=== PATIENT | female | born 1985 | race Caucasian/White ===

== ENCOUNTER → 2017-06-07 | Outpatient (CLI) | payer OTHER ==
[~2017-06-07] MED LIST: ALB18R INH; ALB6.7R INH; AZIT-18 PO; CETI-221 PO; HYDR-2963 PO; KET10 PO; LOR5/325 PO; PANT40TA63 PO; PHEN-580 PO; PRED-1 PO
== END ==
LOC: LAB 12:30
PROVIDERS: ATTEND Family Medicine
DX: M79.1 Myalgia (principal); M25.50 Pain in unspecified joint
CPT/HCPCS: 87502

== ENCOUNTER → 2017-06-12 | Outpatient (REF) ==
[2017-06-12 09:36] LABS: LDL CHOLESTEROL 81 mg/dl
== END ==
DX: Z02.9 Encounter for administrative examinations, unspecified (principal)

== ENCOUNTER → 2017-06-12 | Outpatient (CLI) | payer OTHER | LOC: LAB 07:10 | PROVIDERS: ATTEND Family Medicine | DX: E78.5 Hyperlipidemia, unspecified (principal); E11.65 Type 2 diabetes mellitus with hyperglycemia | CPT/HCPCS: 83036 ==

== ENCOUNTER → 2017-06-16 | Outpatient (CLI) | payer OTHER | LOC: LAB 09:30 | PROVIDERS: ATTEND Family Medicine | DX: R71.8 Other abnormality of red blood cells (principal) | CPT/HCPCS: 36415; 81256; 82728; 83540 ==

== ENCOUNTER 2017-08-14 00:50 | Day surgery (SDC) | payer OTHER ==
[2017-08-14] VITALS (8 sets, daily range): BP systolic 124–145; BP diastolic 75–98
[~2017-08-14] VITALS: Ht 170.2 cm; Wt 112.5 kg
[~2017-08-14 00:50] MED LIST changes: +HYDR-2966 PO; +LACT460C3 PO; +LISD60CA2 PO; +METF-410 PO; +MONT10TA PO; +PSEU120T9 PO
[2017-08-14] MEDS ORDERED: LIDOCAINE/SOD BICARB 8.4% SYR ID ONE (08:00)
[2017-08-14] MEDS ORDERED: FAMOTIDINE 20 MG TAB PO ONE (08:00)
[2017-08-14] MEDS ORDERED: MIDAZOLAM 2 MG/2 ML VIAL IVP PRN (08:00)
[2017-08-14] MEDS ORDERED: NORMOSOL R SOLN(*) 1000 ML BAG 1,000 ML IV PRN (08:00)
[2017-08-14] MEDS ORDERED: fentaNYL CITR 100 MCG/2 ML AMP ONE ×3 (08:54→09:55)
[2017-08-14] MEDS ORDERED: MIDAZOLAM 2 MG/2 ML VIAL ONE (08:54)
--- NOTE | 2017-08-14 08:58 | EKG ---
FACILITY: [facility] - [place] PATIENT NAME: YUNIOR SALEEM : [id number] MR: [id number] V: [id number] EXAM DATE: ORDERING PHYSICIAN: FRANSICO CABRAL TECHNOLOGIST: SANDY Marr Reason : PRE-OP Blood Pressure : / mmHG Vent. Rate : 085 BPM Atrial Rate : 085 BPM P-R Int : 162 ms QRS Dur : 076 ms QT Int : 366 ms P-R-T Axes : 066 092 048 degrees QTc Int : 435 ms Normal sinus rhythm with sinus arrhythmia Poor R wave progression Abnormal ECG No previous ECGs available Confirmed by BERNARDO PHAM ([id number]) on 08/14/2017 7:01:49 PM Referred By: CRISELDA Confirmed By:BERNARDO PHAM
[2017-08-14] MEDS ORDERED: ROCURONIUM BROM 10 MG/ML 10 ML ONE (09:06)
[2017-08-14] MEDS ORDERED: ONDANSETRON 4 MG/2 ML VIAL ONE (09:06)
[2017-08-14] MEDS ORDERED: DEXAMETHASONE SOD PHOS 10MG/ML ONE (09:06)
[2017-08-14] MEDS ORDERED: LIDOCAINE MPF 1% 5 ML VIAL ONE (09:06)
[2017-08-14] MEDS ORDERED: PROPOFOL EMUL(*) 10MG/ML 20 ML 20 ML ONE (09:06)
[2017-08-14] MEDS ORDERED: ceFAZolin 1 GM VIAL ONE (09:07)
[2017-08-14] MEDS ORDERED: SUGAMMADEX SOD 500 MG/5 ML SDV ONE (09:13)
--- NOTE | 2017-08-14 10:17 | OPERATIVE REPORT 1 ---
EVENT DATE: August 14, 2017 SURGEON: Minesh Chavez MD ANESTHESIOLOGIST: Lucius Salcedo MD ANESTHESIA: General endotracheal. PROCEDURE Tonsillectomy. PREOPERATIVE DIAGNOSES 1. Recurrent streptococcal tonsillitis. 2. Tonsillar hypertrophy. 3. Obstructive sleep apnea. POSTOPERATIVE DIAGNOSES 1. Recurrent streptococcal tonsillitis. 2. Tonsillar hypertrophy. 3. Obstructive sleep apnea. INDICATIONS Please refer to the preoperative note. DESCRIPTION OF PROCEDURE The patient was positively identified in the preoperative area. She was accompanied there by her mother. Risks were again explained, including but not limited to, bleeding, infection, persistent obstructive sleep symptoms and those associated with anesthesia. She acknowledged understanding of those risks. She was then brought back to the operative suite, laid supine on the operative table and anesthesia was administered. Once asleep, the patient was positioned, then prepped and draped in usual sterile fashion. A McIvor mouth gag was placed in the patient's oral cavity. Red rubber catheter was placed through the right nostril and utilized to suspend the soft palate. The patient was noted to 3+ tonsils. The right tonsil was grasped with curved Allis forceps and carefully dissected from the lateral pharyngeal wall. The contralateral tonsil was removed in a similar fashion. Hemostasis was obtained with suction Bovie electrocautery. The patient was then turned to anesthesia for emergence. ESTIMATED BLOOD LOSS 25 mL. COMPLICATIONS No complications. MTDD
[2017-08-14] MEDS ORDERED: LIDO100S11 MT (10:34)
[2017-08-14] MEDS ORDERED: OXYC-865 PO (10:35)
[2017-08-14] MEDS ORDERED: AMOX500T10 PO (10:36)
[2017-08-14] MEDS ORDERED: MORPHINE 2 MG/ML SYR IVP ONE (10:50)
[2017-08-14] MEDS ORDERED: MORPHINE 10 MG/ML SYR ONE (10:52)
== END 2017-08-14 10:20 | disposition home or self-care (01) ==
LOC: OR 00:50
PROVIDERS: ATTEND Otolaryngology
DX: J03.01 Acute recurrent streptococcal tonsillitis (principal); G47.33 Obstructive sleep apnea (adult) (pediatric); J35.01 Chronic tonsillitis; I10 Essential (primary) hypertension; E11.9 Type 2 diabetes mellitus without complications; J45.909 Unspecified asthma, uncomplicated; E78.5 Hyperlipidemia, unspecified; K21.9 Gastro-esophageal reflux disease without esophagitis; Z90.49 Acquired absence of other specified parts of digestive tract; Z79.4 Long term (current) use of insulin
CPT/HCPCS: 36415; 42826; 81025; 88304; 93005; J0690; J1100; J2001; J2250; J2270; J2405; J2704; J3010; 82310; 82374; 82435; 82565; 82947; 84132; 84295; 84520

== ENCOUNTER → 2017-09-06 | Outpatient (CLI) | payer OTHER ==
[~2017-09-06] MED LIST changes: +AMOX500T10 PO; +LIDO100S11 MT; +OXYC-865 PO
== END ==
LOC: LAB 14:45
PROVIDERS: ATTEND Otolaryngology
DX: J30.9 Allergic rhinitis, unspecified (principal)
CPT/HCPCS: 36415; 86003

== ENCOUNTER → 2017-10-19 | Outpatient (CLI) | payer OTHER ==
[~2017-10-19] MED LIST changes: +EPIN0.3P15 IM; -METF-410 PO; +METF-411 PO
[2017-10-19 07:58] LABS: LDL CHOLESTEROL 80 mg/dl
== END ==
LOC: LAB 07:18
PROVIDERS: ATTEND Family Medicine
DX: E11.65 Type 2 diabetes mellitus with hyperglycemia (principal); E78.5 Hyperlipidemia, unspecified; D58.2 Other hemoglobinopathies
CPT/HCPCS: 36415; 82040; 82043; 82247; 82310; 82374; 82435; 82465; 82565; 82947; 83036; 83718; 84075; 84132; 84155; 84295; 84450; 84460; 84478; 84520; 85027

== ENCOUNTER 2017-11-21 07:37 | Emergency (ER) | payer OTHER ==
--- NOTE | 2017-11-21 07:38 | ER Report ---
History and Physical Time Seen By MD: 07:38 HPI/ROS CHIEF COMPLAINT: needle stick while drawing a patient's blood HISTORY OF PRESENT ILLNESS: This is a 32 year old female. She is one of our hospital laboratory technicians. The source patient moved suddenly and the butterfly needle came out and stuck the patient in her index finger, middle phalanx, palmar aspect. The exposed patient has never had an exposure in the past. The source patient is available to do further testing. Unknown if the source patient has any HIV or hepatitis. The exposed patient has been immunized to Hepatitis B, unknown if she is a known responder to the vaccine. She has no other complaints at this time. Allergies: Coded Allergies: peanut (Verified Allergy, Mild, sores in mouth, 11/21/17) Home Meds Active Scripts Epinephrine (EPIPEN 2-YEN) 0.3 Mg/0.3 Ml Pen.injctr, 0.3 MG IM PRN, #1 PACK Prov:SHERRY ABURTO JR, MD 09/21/17 Reported Medications Prednisone (PREDNISONE) 20 Mg Tablet, 20 MG PO TID, TAB 11/21/17 Ciprofloxacin Hcl (CIPROFLOXACIN HCL) 500 Mg Tablet, 500 MG PO Q12H, #14 TAB 11/21/17 Lisdexamfetamine Dimesylate (VYVANSE) 60 Mg Capsule, 60 MG PO QDAY, CAPSULE 06/29/17 Metformin Hcl (METFORMIN HCL) 500 Mg Tablet, 1 TAB PO TID, TAB 06/29/17 Montelukast Sodium (SINGULAIR) 10 Mg Tablet, 1 TAB PO QDAY, TAB 06/29/17 Hydrochlorothiazide (HYDROCHLOROTHIAZIDE) 25 Mg Tablet, 1 TAB PO QDAY, TAB 06/29/17 Albuterol Sulfate (VENTOLIN HFA) 18 Gm Inh, 2 PUFF INH Q4-6H, INH 05/30/15 Discontinued Reported Medications Metformin Hcl (METFORMIN HCL) 500 Mg Tablet, 0.5 TAB PO QPM, TAB 08/04/17 Lactobacillus Acidophilus (FLORAJEN) Unknown Strength Capsule, PO, CAPSULE 06/29/17 Pseudoephedrine Hcl (PSEUDOEPHEDRINE) Unknown Strength Tablet.er, 60 MG PO DAILY Y for ALLERGY SYMPTOMS 06/29/17 Reviewed Nurses Notes: Yes Hx Smoking: Yes (FOR ONE YEAR-- "A COUPLE" CIGS PER DAY ) Smoking Status: Former Smoker Exposure to Second Hand Smoke?: No Hx Substance Use Disorder: No Hx Alcohol Use: Yes (occ) Constitutional Vital Sign - Last 24 Hours 11/21/17 07:40 Temp 98.0 Pulse 101 Resp 18 B/P (MAP) 151/100 Pulse Ox 96 Physical Exam Needle stick to the index finger, palmar surface, middle phalanx. Did have bleeding there initially, but no bleeding at this time. No other exam at this time. Medical Decision Making ED Course/Re-evaluation ED Course Appears to be low risk at this time. Discussed post-exposure prophylaxis and recommended waiting for testing. Initial labs will be done and follow-up testing to be determined with employee health nurse. The patient is agreeable to this and is able to return to work. Decision to Disposition Date: Nov 21, 2017 Decision to Disposition Time: 07:46 Depart Departure Latest Vital Signs Vital Signs Date Time Temp Pulse Resp B/P (MAP) Pulse Ox O2 Delivery O2 Flow Rate FiO2 11/21/17 07:40 98.0 101 18 151/100 96 Impression: Primary Impression: Employee exposure to body fluids Condition: Condition Unchanged Disposition: HOME OR SELF-CARE Referrals: SARIAH SOTELO DO (PCP) Patient Instructions: Body Substance Exposure (ED) Additional Instructions: Follow-up with Shabana for further testing and follow-up plan. Able to return to work at this time. RICHAR HO MD Nov 21, 2017 07:38
[2017-11-21 07:40] VITALS: BP 151/100
[2017-11-21] MEDS ORDERED: CIPR-214 PO (07:45)
[2017-11-21] MEDS ORDERED: PRED20TA6 PO (07:45)
== END 2017-11-21 08:02 | disposition home or self-care (01) ==
LOC: ER 07:41
DX: Z77.21 Contact with and (suspected) exposure to potentially hazardous body fluids (principal); W46.0XXA Contact with hypodermic needle, initial encounter; Y99.0 Civilian activity done for income or pay
CPT/HCPCS: 99281

== ENCOUNTER 2017-11-27 01:23 | Outpatient (RCR) | payer OTHER ==
[~2017-11-27 01:23] MED LIST changes: +CIPR-214 PO; +PRED20TA6 PO
[2017-11-28] MEDS ORDERED: BARIUM SULFATE 176 GM BTL PO ONE (12:59)
[2017-11-28] MEDS ORDERED: BARIUM SULFATE 340 GM POWD ONE (12:59)
--- NOTE | 2017-11-28 17:49 | RADIOLOGY IMAGING REPORT ---
FACILITY: [facility] PATIENT NAME: Jaimee Rogel : 1985 MR: [id number] V: [id number] EXAM DATE: ORDERING PHYSICIAN: SARIAH SOTELO TECHNOLOGIST: Location: [facility] - [place] Patient: Jaimee Rogel : 1985 Visit/Account:[id number] Date of Sevice: 11/28/2017 Exam type: UPPER GI SERIES W/O AIR History: Cough GERD and pedal edema Comparison: Findings: Double contrast upper GI series was performed with thick and thin barium and air contrast.. The smal l hiatal hernia with a moderate amount of gastroesophageal reflux. There is no evidence of mucosal e rosion or esophageal narrowing. No abnormality of the stomach to bulb or duodenal C-loop are seen. The fluoroscopy dose area product was 1135.06 micro-Pedroza per meter squared IMPRESSION: 1. Small hiatal hernia with a moderate amount of gastric esophageal reflux although no evidence of m ucosal erosion or esophageal narrowing Report Dictated By: Claudine Jeronimo MD at 11/28/2017 5:42 PM Report E-Signed By: Claudine Jeronimo MD at 11/28/2017 5:45 PM WSN:[email or web address]
== END 2017-11-28 18:00 | disposition home or self-care (01) ==
LOC: US 01:23 → EDSTATUS 15:01 → US 11-28 18:00
PROVIDERS: ATTEND Family Medicine
DX: R05 Cough (principal); K21.9 Gastro-esophageal reflux disease without esophagitis; R60.9 Edema, unspecified; K44.9 Diaphragmatic hernia without obstruction or gangrene
CPT/HCPCS: 74240; 93306

== ENCOUNTER → 2017-12-08 | Outpatient (CLI) | payer OTHER ==
--- NOTE | 2017-12-11 10:00 | RT HOLTER TEST ---
[place] [facility] [place] NAME: YUNIOR SALEEM : [id number] MR: [id number] V: [id number] EXAM DATE: ORDERING PHYSICIAN: SARIAH SOTELO TECHNOLOGIST: sophie Hook-up date: 2017-12-08 13:49:00 Duration: 47:59:00 Test Indications: TACHYCARDIA Medications: NONE ON DIARY [id number] QRS complexes 5 Ventricular ectopics which represent <1 % of total QRS comp. 5 Supraventricular ectopics which represent <1 % of total QRS comp. * Paced QRS complexes which represent % of total QRS comp. VENTRICULAR ECTOPY 5 Isolated 0 Bigeminal Cycles 0 Couplets 0 Runs 0 Beats in Runs * Beats LONGEST at * BPM at :: -- * Beats FASTEST at * BPM at :: -- SUPRAVENTRICULAR ECTOPY 3 Isolated 1 Couplets 0 Runs 0 Beats in Runs * Beats LONGEST at * BPM at :: -- * Beats FASTEST at * BPM at :: -- HEART RATES 49 MIN at 00:34:03 2017-12-10 90 AVG 143 MAX at 13:05:31 2017-12-10 LONGEST RR 1.376 secs at 00:33:57 2017-12-10 S-T LEVELS Channel 1 -12.800 mm MIN at 13:49:00 2017-12-08 -12.800 mm MAX at 13:49:00 2017-12-08 Channel 2 -12.800 mm MIN at 13:49:00 2017-12-0812.800 mm MAX at 13:49:00 2017-12-08 Channel 3 -12.800 mm MIN at 13:49:00 2017-12-0812.800 mm MAX at 13:49:00 2017-12-08 Sinus rhythm Occasional Premature ventricular complexes No correlation of symptoms Confirmed by CAMILA FATIMA ([id number]) on 12/11/2017 9:59:15 AM Referred By: Overread By: CAMILA FATIMA
== END ==
LOC: RESP 03:59
PROVIDERS: ATTEND Family Medicine
DX: I49.3 Ventricular premature depolarization (principal)
CPT/HCPCS: 93225

== ENCOUNTER → 2017-12-21 | Outpatient (CLI) | payer OTHER | LOC: LAB 14:25 | PROVIDERS: ATTEND Nurse Practitioner | DX: D22.4 Melanocytic nevi of scalp and neck (principal) | CPT/HCPCS: 88305 ==

== ENCOUNTER → 2018-01-22 | Outpatient (CLI) | payer OTHER ==
[~2018-01-22] MED LIST changes: -METF-411 PO; +METF-450 PO
[2018-01-22 09:08] LABS: LDL CHOLESTEROL 100 mg/dl
== END ==
LOC: LAB 06:56
PROVIDERS: ATTEND Family Medicine
DX: E78.5 Hyperlipidemia, unspecified (principal); E11.65 Type 2 diabetes mellitus with hyperglycemia; R79.89 Other specified abnormal findings of blood chemistry
CPT/HCPCS: 36415; 82040; 82043; 82247; 82310; 82374; 82435; 82465; 82565; 82947; 83036; 83718; 84075; 84132; 84155; 84295; 84450; 84460; 84478; 84520

== ENCOUNTER → 2018-05-21 | Outpatient (CLI) | payer OTHER ==
--- NOTE | 2018-05-21 18:01 | RADIOLOGY IMAGING REPORT ---
FACILITY: [facility] - [place] PATIENT NAME: Jaimee Rogel : 1985 MR: [id number] V: [id number] EXAM DATE: ORDERING PHYSICIAN: SARIAH SOTELO TECHNOLOGIST: Location: [facility] - [place] Patient: Jaimee Rogel : 1985 Visit/Account:[id number] Date of Sevice: 05/21/2018 PELVIC HISTORY: Irregular cycles, nuva ring x10 years TECHNIQUE: Transvaginal and transabdominal ultrasound pelvis. COMPARISON: None. FINDINGS: Uterus: ; 5.8 cm length x 2.6 cm AP x 3.2 cm transverse. Myometrium: Unremarkable. Endometrium: Unremarkable; double thickness 4.5 mm. Cervix: Small amount of fluid noted within the endocervical canal. Ovaries: Right - 2.5 x 1.6 x 1.6 cm with a 1 cm follicle Left - 3.1 x 1 x 2.5 cm with an 8 mm follicle Blood flow is documented in each ovary by duplex Doppler ultrasound. Adnexa: Grossly unremarkable. Free pelvic fluid: None. IMPRESSION: Small follicles identified in both ovaries Small amount of fluid noted within the endocervical canal Report Dictated By: Claudine Jeronimo MD at 05/21/2018 5:56 PM Report E-Signed By: Claudine Jeronimo MD at 05/21/2018 5:58 PM WSN:[email or web address]
== END ==
LOC: US 03:52
PROVIDERS: ATTEND Family Medicine
DX: N92.6 Irregular menstruation, unspecified (principal); N83.01 Follicular cyst of right ovary; N83.02 Follicular cyst of left ovary
CPT/HCPCS: 76830; 76856

== ENCOUNTER → 2018-08-30 | Outpatient (CLI) | payer OTHER ==
[2018-08-30 10:06] LABS: LDL CHOLESTEROL 69 mg/dl
== END ==
LOC: LAB 07:00
PROVIDERS: ATTEND Family Medicine
DX: E78.5 Hyperlipidemia, unspecified (principal); E03.9 Hypothyroidism, unspecified; E11.65 Type 2 diabetes mellitus with hyperglycemia; I10 Essential (primary) hypertension
CPT/HCPCS: 36415; 82040; 82043; 82247; 82310; 82374; 82435; 82465; 82565; 82947; 83036; 83718; 84075; 84132; 84155; 84295; 84443; 84450; 84460; 84478; 84520